=== PATIENT | female | born 1935 | race Caucasian/White ===

== ENCOUNTER 2016-11-07 11:28 | Inpatient (IN) | payer MEDICARE ==
[~2016-11-07] VITALS: Ht 160 cm; Wt 51.3 kg
[2016-11-07 00:38] VITALS: BP 96/51
[~2016-11-07 11:28] MED LIST: (None)10 MG OR; ACTICIN5 % EX; ALPRAZOLAM0.25 MG OR; AMBIEN10 MG OR; AMOXICILLIN500 MG PO; AVELOX400 MG OR; AVELOX400 MG PO; BACTRIM DS1 TAB OR; BACTROBAN2 % EX; CIPROFLOXACN500 MG PO; CLARITIN-D1 TAB OR; CLONAZEPAM0.5 MG PO; DARVOCET N-100100 - OR; DOCUSATE SOD100 MG PO; DOLACET1 CAP PO; ESTRACE VAG0.1 MG/GM VA; FLONASE NASAL50 MCG; FLORASTOR250 M1 PO; FUROSEMIDE20 MG PO; FUROSEMIDE40 MG PO; HYDROCO/APAP1 TA9 PO; HYDROXYZINE HCL25 MG OR; ISOSORB MONO30 MG OR; ISOSORB MONO30 MG PO; KENALOG15 G1 EX; LORTAB 5/3255 MG PO; METO25TAB OR; METOPROL TAR25 MG PO; METOPROL TAR50 MG OR; METOPROLOL25 M1 OR; MIRTAZAPINE15 MG PO; MULT VITAMIN OR; OXYCODONE5 MG OR; PATANASE0.6 %; PEPCID AC10 M1 OR; REMERON15 MG OR; REMERON30 MG PO; SERTRALINE50 MG OR; SIMVASTATIN20 MG OR; TRAMADOL HCL50 MG OR; TRIAMCINOLON0.11 EX; TYLENOL500 MG OR; ULTRAM50 M1 OR; ULTRAM50 M1 PO; VENLAFAXINE75 M2 PO; VITAMIN D PO; VITAMIN D400 UNI2 PO; XANAX0.5 MG; XYZAL5 MG PO; ZESTRIL5 MG OR; ZYRTEC10 MG OR; ZYRTEC10 MG PO
--- NOTE | 2016-11-07 11:28 | NUR ---
PT TO ROOM VIA EMS FOR TREATMENT
--- NOTE | 2016-11-07 11:45 | NUR ---
ABG COMPLETED, O2@2L APPLIED FOR CONFORT, O2 SAT ON RA 87%. NO CYANOSIS OR SOB. SKIN PWD. TURGOR POOR, MUCOUS MEMBRANES DRY, 2+ PEDAL EDEMA BILATERALLY. FAINT CRACKLES BILAT BASES, BS X4 QUADS. NO C/O N/V/D AT THIS TIME
[2016-11-07] MEDS ORDERED: HYDROCO/APAP1 T10 PO (11:55)
[2016-11-07] MEDS ORDERED: FUROSEMIDE40 MG PO (11:56)
[2016-11-07] MEDS ORDERED: ISOSORB MONO30 MG PO (11:57)
[2016-11-07] MEDS ORDERED: ELIQUIS2.5 MG PO (11:58)
--- NOTE | 2016-11-07 12:15 | NUR ---
PT RESTING SUPINE IN BED IN NO ACUTE DISTRESS.VSS. 02@2L VIA NC. NO N/V/D SINCE MARKETING OPERATIONS MANAGER.
[2016-11-07 12:16] LABS: HEMATOCRIT 33.7 % (37.0-47.0); HEMOGLOBIN 10.5 g/dl (12.0-16.0); IMMATURE GRANULOCYTES 0.6 % (0.0-1.0); MEAN CELL VOLUME 89.6 fL CALC (80.0-100.0); MEAN CORPUSCULAR HGB 27.9 pG CALC (26.0-32.0); MEAN CORPUSCULAR HGB CONC 31.2 g/L CALC (32.0-36.0); NEUT# 2.69 thou/uL (2.00-7.15); RED BLOOD COUNT 3.76 mill/uL (4.20-5.60); RED CELL DISTRI WIDTH 15.9 % (11.5-15.5)
[2016-11-07 12:41] LABS: ALBUMIN 3.7 g/dL (3.2-5.0); ALKALINE PHOSPHATASE 154 u/l (38-126); BILIRUBIN, TOTAL 0.6 mg/dL (0.0-1.4); BUN 23 mg/dL (8-23); BUN/CREATININE RATIO 28 (12-20 (CALC)); CALCIUM 8.3 mg/dL (8.4-10.2); CARBON DIOXIDE 30 mmol/l (22-30); CHLORIDE 98 mmol/l (95-108); CREATININE 0.8 mg/dL (0.5-1.0); GFR > 60 ML/MIN (>=60 (CALC)); GFR FOR AFR.AMER. > 60 ML/MIN (>=60 (CALC)); GLUCOSE 119 mg/dL (82-115); SGOT/AST 30 u/l (9-36); SGPT/ALT 28 u/l (11-66); SODIUM 141 mmol/l (137-146); TOTAL PROTEIN 7.5 g/dL (6.3-8.2)
[2016-11-07 12:44] LABS: ANION GAP 15 (6-22 (CALC)); POTASSIUM 2.4 mmol/l (3.5-5.1)
[2016-11-07 12:52] LABS: MYOGLOBIN 59 ng/mL (0 - 62)
--- NOTE | 2016-11-07 13:44 | NUR ---
PT STATES "I REALLY DO FEEL BETTER". TOLERATING IVF AND POTASSIUM INFUSION WITHOUT DIFFICULTY. NO REDNESS OR COMPLAINT TO SITE
--- NOTE | 2016-11-07 13:47 | NUR ---
DR GREGORY AT BEDSIDE TO DISCUSS CLINICAL FINDINGS
[2016-11-07 14:01] LABS: URINE BILIRUBIN - DIPSTICK NEGATIVE (NEGATIVE); URINE BLOOD DIPSTICK TRACE-LYSED (NEGATIVE); URINE CLARITY CLEAR; URINE COLOR YELLOW; URINE GLUCOSE - DIPSTICK NEGATIVE (NEGATIVE); URINE KETONE NEGATIVE (NEGATIVE); URINE LEUK ESTERASE TRACE (NEGATIVE); URINE NITRITE - DIPSTICK NEGATIVE (Negative); URINE PH 5.5 (4.5-8.0); URINE PROTEIN - DIPSTICK TRACE mg/dL (NEG-TRACE); URINE SPECIFIC GRAVITY 1.015; URINE UROBILINOGEN - DIPSTICK 0.2 E.U./dL (0.2)
--- NOTE | 2016-11-07 14:20 | NUR ---
PT RESTING IN NO ACITE DISTRESS. VSS. AWAITING TEST RESULTS. SRX2
--- NOTE | 2016-11-07 15:08 | NUR ---
CALLED REPORT TO EDER CROWLEY
--- NOTE | 2016-11-07 15:15 | NUR ---
TRANSPORTED TO AL VIA STRETCHER IN STABLE CONDITION
--- NOTE | 2016-11-07 15:21 | NUR ---
PT TO ROOM VIA STRETHCER ACCOMPANIED BY STAFF; PT A/O X3; PT DENIES PAIN; PT STATES N/V/D X2 DAYS AND WEAKNESS; IVF INFUSING WELL; TELE MONITOR IN PLACE; PT ORIENTED TO ROOM AND CALL SYSTEM; WILL CONTINUE TO MONITOR.
[2016-11-07 15:50] VITALS: BP 102/63
--- NOTE | 2016-11-07 18:40 | NUR ---
PT SITTING UP IN CHAIR; TOLERATED PO POTASSIUM FAIR; NO COMPLAINTS OF PAIN AT THIS TIME; CALL BACK WITHIN REACH; WILL CONTINUE TO MONITOR. WILL CONTINUE TO MONITOR.
--- NOTE | 2016-11-07 19:54 | NUR ---
BEDSIDE REPORT RECEIVED FROM EDER ROQUE. PT RESTING IN BED WATCHING TV. DENIES PAIN AT THIS TIME. RESPIRATIONS EVEN AND UNLABORED. PLAN OF CARE DISCUSSED. PT ENCOURAGED TO VERBALIZE CONCERNS. STATES UNDERSTANDING. SAFETY MEASURES IN PLACE. CALL LIGHT SYSTEM REVIEWED AND IN REACH.
[2016-11-07 20:09] VITALS: BP 93/51
[2016-11-07 21:22] LABS: MAGNESIUM 1.6 mg/dL (1.6-2.3); POTASSIUM 2.9 mmol/l (3.5-5.1)
--- NOTE | 2016-11-08 | NUR ---
PT UP TO RESTROOM AT THIS TIME. DENIES PAIN. RESPIRATIONS EVEN AND UNLABORED. OXYGEN AT BEDSIDE. PT SATURTATION IS ABOVE 90% ON RA AT THS TIME. ABT GIVEN AND INFUSING. PT REMAINS HYPOKALEMIC AND ANOTHER DOSE OF POTASSIUM ORDERED AND GIVEN. SAFETY MEASURES IN PLACE. CALL LIGHT WITHIN REACH.
--- NOTE | 2016-11-08 04:00 | NUR ---
PT ASLEEP AT THIS TIME. NO SIGNS OF PAIN OR DISCOMFORT. RESPIRATIONS EVEN AND UNLABORED WITH OXYGEN IN PLACE AT 2L VIA NC. SAFETY MEASURES IN PLACE. CALL LIGHT WITHIN REACH.
[2016-11-08 05:00] VITALS: BP 93/60
[2016-11-08 06:28] LABS: HEMATOCRIT 30.8 % (37.0-47.0); HEMOGLOBIN 9.5 g/dl (12.0-16.0); IMMATURE GRANULOCYTES 0.4 % (0.0-1.0); MEAN CELL VOLUME 90.3 fL CALC (80.0-100.0); MEAN CORPUSCULAR HGB 27.9 pG CALC (26.0-32.0); MEAN CORPUSCULAR HGB CONC 30.8 g/L CALC (32.0-36.0); NEUT# 1.55 thou/uL (2.00-7.15); RED BLOOD COUNT 3.41 mill/uL (4.20-5.60); RED CELL DISTRI WIDTH 16.1 % (11.5-15.5)
[2016-11-08 06:44] LABS: ANION GAP 16 (6-22 (CALC)); BUN 23 mg/dL (8-23); BUN/CREATININE RATIO 25 (12-20 (CALC)); CALCIUM 8.2 mg/dL (8.4-10.2); CARBON DIOXIDE 26 mmol/l (22-30); CHLORIDE 104 mmol/l (95-108); CREATININE 0.9 mg/dL (0.5-1.0); GFR 60 ML/MIN (>=60 (CALC)); GFR FOR AFR.AMER. > 60 ML/MIN (>=60 (CALC)); GLUCOSE 87 mg/dL (82-115); POTASSIUM 4.7 mmol/l (3.5-5.1); SODIUM 142 mmol/l (137-146)
--- NOTE | 2016-11-08 07:00 | NUR ---
REPORT RECIEVED FROM LINDA GUNTER; PT SITTING UP AT BEDSIDE; NO S/S OF DISTRESS NOTED; PT ASSISTED TO BATHROOM AT THIS TIME PT AMB WITH STEADY GAIT AND USE OF WALKER; CALL LIGHT WITHIN REACH; PT ENCOURAGED TO CALL FOR ASSISTANCE; CALL LIGHT WITHIN REACH; WILL CONTINUE TO MONITOR
[2016-11-08 08:36] VITALS: BP 100/52
[2016-11-08 11:10] VITALS: BP 100/46
[2016-11-08] MEDS ORDERED: ELIQUIS2.5 MG PO (11:38)
[2016-11-08] MEDS ORDERED: METOPROL TAR25 MG PO (11:39)
[2016-11-08] MEDS ORDERED: LISINOPRIL2.5 MG PO (11:39)
--- NOTE | 2016-11-08 12:22 | NUR ---
PT SITTING UP IN CHAIR AT BEDSIDE FOR LUNCH; PT DENIES ANY NEEDS AT THIS TIME; CALL LIGHT WITHIN REACH; WILL CONTINUE TO MONITOR
--- NOTE | 2016-11-08 14:03 | NUR ---
Discharge instructions given. Patient verbalizes understanding of same. Discharged in stable condition via Wheelchair to Home with family. All belongings sent with pt.
== END 2016-11-08 14:03 | disposition home or self-care (01) | DRG 391 ==
LOC: ENPENDDIS → ED 11:28 → ED-I 13:49 → ED 14:22 → MS2 14:35
PROVIDERS: Emergency Medicine; ADMIT Internal Medicine; ATTEND Internal Medicine
DX: A08.4 Viral intestinal infection, unspecified (principal); J96.01 Acute respiratory failure with hypoxia; C95.91 Leukemia, unspecified, in remission; E87.6 Hypokalemia; I10 Essential (primary) hypertension; E78.00 Pure hypercholesterolemia, unspecified; F41.9 Anxiety disorder, unspecified; F32.9 Major depressive disorder, single episode, unspecified; E78.5 Hyperlipidemia, unspecified; I48.0 Paroxysmal atrial fibrillation; M19.90 Unspecified osteoarthritis, unspecified site; Z95.0 Presence of cardiac pacemaker

== ENCOUNTER 2016-12-12 17:37 | Inpatient (IN) | payer MEDICARE ==
[~2016-12-12] VITALS: Ht 160 cm; Wt 46.0 kg
[~2016-12-12 17:37] MED LIST changes: +ELIQUIS2.5 MG PO; +HYDROCO/APAP1 T10 PO; +LISINOPRIL2.5 MG PO
[2016-12-12 18:23] LABS: HEMATOCRIT 34.7 % (37.0-47.0); HEMOGLOBIN 10.6 g/dl (12.0-16.0); IMMATURE GRANULOCYTES 0.3 % (0.0-1.0); MEAN CELL VOLUME 87.6 fL CALC (80.0-100.0); MEAN CORPUSCULAR HGB 26.8 pG CALC (26.0-32.0); MEAN CORPUSCULAR HGB CONC 30.5 g/L CALC (32.0-36.0); NEUT# 2.14 thou/uL (2.00-7.15); RED BLOOD COUNT 3.96 mill/uL (4.20-5.60); RED CELL DISTRI WIDTH 15.9 % (11.5-15.5)
--- NOTE | 2016-12-12 18:23 | NUR ---
PATIENT TO ROOM VIA EMS PATIENT INCONTINENT. PROVIDER NOTIFIED OF PATIENTS STATUS. PATIENT DENIES ANY PAIN AT THIS TIME
[2016-12-12 18:39] LABS: ALBUMIN 3.6 g/dL (3.2-5.0); ALKALINE PHOSPHATASE 232 u/l (38-126); ANION GAP 16 (6-22 (CALC)); BILIRUBIN, TOTAL 0.8 mg/dL (0.0-1.4); BUN 23 mg/dL (8-23); BUN/CREATININE RATIO 25 (12-20 (CALC)); CALCIUM 8.8 mg/dL (8.4-10.2); CARBON DIOXIDE 29 mmol/l (22-30); CHLORIDE 100 mmol/l (95-108); CREATININE 0.9 mg/dL (0.5-1.0); GFR 60 ML/MIN (>=60 (CALC)); GFR FOR AFR.AMER. > 60 ML/MIN (>=60 (CALC)); GLUCOSE 93 mg/dL (82-115); POTASSIUM 3.4 mmol/l (3.5-5.1); SGOT/AST 43 u/l (9-36); SGPT/ALT 34 u/l (11-66); SODIUM 143 mmol/l (137-146); TOTAL PROTEIN 7.2 g/dL (6.3-8.2)
--- NOTE | 2016-12-12 18:44 | NUR ---
PATIENT INCONTINENT SAMPLE TAKEN AND SENT TO THE LAB [id number] AT BEDSIDE FOR EVALUATION
[2016-12-12 19:09] LABS: C. DIFFICILE TOXIN A&B NEGATIVE (NEGATIVE)
--- NOTE | 2016-12-12 19:10 | NUR ---
INTRODUCED SELF TO PT DURING BEDSIDE REPORT WITH GABBIE GAINES. PT RESTING QUIETLY ON STRETCHER IN NO ACUTE DISTRESS. DENIES PAIN. REPORTING HAS NOT HAD ANOTHER STOOL
--- NOTE | 2016-12-12 19:30 | NUR ---
PRESENTS WITH 3 DAYS HISTORY OF DIARRHEA STOOLS THAT BEGAN ON THURSDAY AND HAS CONTINUED. TODAY PT HAS HAD GREATER THAN 3 STOOLS PER HOUR WITH INCREASING WEAKNESS. STARTED ON ANTIBIOTIC ON 12/08/2016 FOR EAR INFECTION. SHE IS ALERT AND ORIENTED, SPEECH IS CLEAR AND GOAL DIRECTED. PUPILS ARE IRREGULAR S/P IRIDECTOMY WITH RT AT 4 AND LEFT AT 6 AND NON REACTIVE. EOM INTACT. TRINH WELL AGAINST GRAVITY. DENIES PARETHESIA. SKIN IS PALE WARM AND DRY. DECREASED TISSUE ELASTICITY, MORE THAN ANTICIPATED FOR AGE. ORAL MUCOUS MEMB PINK, DRY. CAP REFILL < 2SEC. CARDIA-100% PACED 100% CAPTURE. CHEST EXPANION IS SYMMETRICAL WITH CREPITATION THROUGHOUT. RESPIRATIONS ARE EUPENIC. ABDOMEN IS SOFT, NON DISTENDED, NON TENDER TO PALPATION WITHOUT GUARDING OR REBOUND. DISCUSSED NPO STATUS AT THIS TIME
[2016-12-12 19:40] LABS: AMYLASE < 30 u/l (30-110); LIPASE < 10 u/l (23-300)
--- NOTE | 2016-12-12 20:10 | NUR ---
PT RET RUEND FROM RADIOLOGY. INCONTIENT OF LARGE AMOUNT OF LIQUID BROWN STOOL. PERICARE WAS PROVIDED WITH LINEN CHANGE.
--- NOTE | 2016-12-12 21:00 | NUR ---
PT VOIDING WITHOUT DIARRHEA ON BEDPAN AND URINE SAMPLE OBTAINED AFTER PERICARE TO PERINENUM
--- NOTE | 2016-12-12 21:40 | NUR ---
PT INCONTINENT OF LARGE AMOUNT OF LIQUID BROWN STOOL. PERICARE AND SKIN CARE PROVIDED WITH PARTIAL LINEN CHANGE
[2016-12-12 21:42] LABS: URINE BILIRUBIN - DIPSTICK NEGATIVE (NEGATIVE); URINE BLOOD DIPSTICK NEGATIVE (NEGATIVE); URINE CLARITY CLEAR; URINE COLOR YELLOW; URINE GLUCOSE - DIPSTICK NEGATIVE (NEGATIVE); URINE KETONE NEGATIVE (NEGATIVE); URINE LEUK ESTERASE NEGATIVE (NEGATIVE); URINE NITRITE - DIPSTICK NEGATIVE (Negative); URINE PH 5.5 (4.5-8.0); URINE PROTEIN - DIPSTICK TRACE mg/dL (NEG-TRACE); URINE UROBILINOGEN - DIPSTICK 0.2 E.U./dL (0.2)
--- NOTE | 2016-12-12 22:13 | NUR ---
INCONTINENT OF MODERATE AMOUNT OF LIQUID BROWN STOOL. PERICARE WAS PROVIDED WITH PARTIAL LINEN CHANGE
--- NOTE | 2016-12-12 22:39 | NUR ---
ATTEMPTED TO CALL REPORT,
--- NOTE | 2016-12-12 23:08 | NUR ---
REPORT TO LENA GAINES ON MED/SURG
--- NOTE | 2016-12-12 23:21 | NUR ---
PT TRANSPORTED VIA STRETCHER ACCMPANIED BY ELECTRIC POWER MACHINE OPERATOR IN STABLE [place] AFTER TELEMTRY UNIT APPLIED. REMAINS ALERT AND ORIENTED. SPEECH CLEAR AND GOAL DIRECTED
--- NOTE | 2016-12-12 23:30 | NUR ---
PT FROM ER TO MEDSUR[facility] ROOM 269; ALERT AND ORIENTED; ABLE TO AMBULATE FROM STRETCHER TO TO SCALE THEN TO BED WITH ASSISTANCE X1; DENIES PAIN OR SOB; SATTING AT 89%; ADMINISTERED O2 VIA NC 2LPM; NO DISTRESS NOTED; HAVE A SMALL LOOSE STOOL AT THIS TIME; WILL FOLLOW UP WITH MEDS SCHEDULED AND ASSESSMENT COMPLETED AT THIS TIME; SEE INTERVENTIONS FOR DETAILS; CALL LIGHT AT REACH AND EXPLAINED; SAFETY MEASURE IN PLACE; 2+ PITTING EDEMA ON BILAT LLE; WILL CONTINUE TO REASSESS. TELE IN PLACE.
[2016-12-13] VITALS (7 sets, daily range): BP systolic 113–146; BP diastolic 60–74
--- NOTE | 2016-12-13 03:00 | NUR ---
PT IN RESTING IN BED DENIES NEEDS AT THIS TIME; VOICES NO NEW COMPLAINTS; RESP ARE EVEN AND UNLABORED NOT DISTRESS NOTED; TELE IN PLACE; AFEBRILE; VSS; WILL CONTINUE TO MONITOR.
--- NOTE | 2016-12-13 05:13 | NUR ---
ASSISTED PT TO BSC; HAD A SMALL LOOSE BM; PROVIDED PERINEAL CARE; SOME REDNESS NOTED ON COCCYX DUE TO FREQUENT STOOLS; APPLIED SOME BARRIER CREAM; WILL COTINUE TO MONITOR.
[2016-12-13 05:56] LABS: HEMATOCRIT 34.3 % (37.0-47.0); HEMOGLOBIN 10.3 g/dl (12.0-16.0); IMMATURE GRANULOCYTES 0.4 % (0.0-1.0); MEAN CELL VOLUME 88.6 fL CALC (80.0-100.0); MEAN CORPUSCULAR HGB 26.6 pG CALC (26.0-32.0); NEUT# 1.65 thou/uL (2.00-7.15); RED BLOOD COUNT 3.87 mill/uL (4.20-5.60); RED CELL DISTRI WIDTH 15.8 % (11.5-15.5)
[2016-12-13 06:12] LABS: ANION GAP 13 (6-22 (CALC)); BUN 20 mg/dL (8-23); BUN/CREATININE RATIO 21 (12-20 (CALC)); CALCIUM 8.2 mg/dL (8.4-10.2); CARBON DIOXIDE 29 mmol/l (22-30); CHLORIDE 105 mmol/l (95-108); CREATININE 0.9 mg/dL (0.5-1.0); GFR 60 ML/MIN (>=60 (CALC)); GFR FOR AFR.AMER. > 60 ML/MIN (>=60 (CALC)); GLUCOSE 72 mg/dL (82-115); SODIUM 144 mmol/l (137-146)
--- NOTE | 2016-12-13 09:15 | NUR ---
PT ASSISTED TO BSC; MODERATE AMOUNT OF LOOSE STOOL NOTED; PT DENIES PAIN; IVF INFUSING WITHOUT DIFFICULTY; CALL BACK WITHIN REACH; WILL CONTINUE TO MONITOR.
--- NOTE | 2016-12-13 13:23 | NUR ---
PT RESTING IN SUPINE POSITION; NO COMPLAINTS VOICED; IVF INFUSING WITHOUT DIFFICULTY; PT CONTINUES TO HAVE MULTIPLE LOOSE STOOLS; ASSISTED WITH CORBIN CARE; BARRIER CREAM APPLIED;
--- NOTE | 2016-12-13 20:00 | NUR ---
PT CONTINUES HAVING FREQUENT LOOSE BM, GREEN WATERY; DENIES PAIN AT THIS TIME; RESP ARE EVEN AND UNLABORED; DENIES N/V; FLUIDS INFUSING AT RX RATE WITHOUT DIFFICULTY; PROVIDED PERINEAL CARE; COCCYX IS RED FROM FREQ BM'S, BARRIER CREAM APPLIED, LUNGS ARE COARSE BILT; SAFETY PRECAUTIONS IN PLACE; WILL CONTINUE TO MONITOR.
--- NOTE | 2016-12-13 23:55 | NUR ---
PT RESTING IN BED WITH EYES CLOSED; VOICES NO COMPLAINTS AT THIS TIME; RESP EVEN AND UNLABORED; DENIES N/V OR PAIN; VSS, TELE IN PLACE; PACED HR 60 PER ER. +2 EDEMA NOTED ON BLE; CALL BACK IS AT REACH WILL COTINUE TO MONITOR.
[2016-12-14 04:05] VITALS: BP 127/62
--- NOTE | 2016-12-14 04:11 | NUR ---
ASSISTED PT TO BSC, NO BM AT THIS TIME IN BSC; CHANGED STOOL/WET UNDERPAD; DENIES PAIN OR NEEDS; IV SITE INTACT; INFUSING WITHOUT DIFFICULTY; CALL BACK AT REACH; WILL COTINUE TO MONITOR.
[2016-12-14 05:35] LABS: HEMATOCRIT 36.1 % (37.0-47.0); HEMOGLOBIN 10.7 g/dl (12.0-16.0); IMMATURE GRANULOCYTES 0.3 % (0.0-1.0); MEAN CELL VOLUME 88.5 fL CALC (80.0-100.0); MEAN CORPUSCULAR HGB 26.2 pG CALC (26.0-32.0); MEAN CORPUSCULAR HGB CONC 29.6 g/L CALC (32.0-36.0); NEUT# 2.11 thou/uL (2.00-7.15); RED BLOOD COUNT 4.08 mill/uL (4.20-5.60); RED CELL DISTRI WIDTH 15.9 % (11.5-15.5)
--- NOTE | 2016-12-14 05:38 | NUR ---
RESP ARE UNLABORED; VSS; DENIES NEEDS, N/V OR PAIN AT THIS TIME; PT CONTINUES HAVING SCANT/SMALL, GREEN, LOOSE BM'S, NOT FREQ BEFORE; CALL BACK IS AT REACH WILL CONTINUE TO MONITOR.
[2016-12-14 05:54] LABS: ANION GAP 16 (6-22 (CALC)); BUN 15 mg/dL (8-23); BUN/CREATININE RATIO 17 (12-20 (CALC)); CALCIUM 8.7 mg/dL (8.4-10.2); CARBON DIOXIDE 26 mmol/l (22-30); CHLORIDE 106 mmol/l (95-108); CREATININE 0.9 mg/dL (0.5-1.0); GFR 60 ML/MIN (>=60 (CALC)); GFR FOR AFR.AMER. > 60 ML/MIN (>=60 (CALC)); GLUCOSE 84 mg/dL (82-115); POTASSIUM 4.2 mmol/l (3.5-5.1); SODIUM 143 mmol/l (137-146)
[2016-12-14 07:48] VITALS: BP 138/68
--- NOTE | 2016-12-14 10:14 | NUR ---
DR. HASTINGS IN TO SEE PT; PLAN OF CARE DISCUSSED
[2016-12-14 11:06] VITALS: BP 114/70
[2016-12-14] MEDS ORDERED: FLORASTOR250 M1 PO (12:07)
--- NOTE | 2016-12-14 12:44 | NUR ---
Discharge instructions given. Patient verbalizes understanding of same. Discharged in stable condition via Wheelchair to Home with family. All belongings sent with pt.
== END 2016-12-14 12:44 | disposition home or self-care (01) | DRG 391 ==
LOC: ENPENDDIS → ED 17:37 → ED-I 21:50 → ED 22:07 → MS2 22:08
PROVIDERS: Emergency Medicine; ADMIT Internal Medicine; ATTEND Internal Medicine
DX: A08.0 Rotaviral enteritis (principal); J96.01 Acute respiratory failure with hypoxia; D61.818 Other pancytopenia; C91.01 Acute lymphoblastic leukemia, in remission; I48.0 Paroxysmal atrial fibrillation; N28.1 Cyst of kidney, acquired; E87.6 Hypokalemia; I86.8 Varicose veins of other specified sites; I10 Essential (primary) hypertension; K44.9 Diaphragmatic hernia without obstruction or gangrene; Z95.0 Presence of cardiac pacemaker; Z90.49 Acquired absence of other specified parts of digestive tract; Z79.01 Long term (current) use of anticoagulants

== ENCOUNTER 2017-04-22 03:55 | Emergency (ER) | payer MEDICARE ==
[~2017-04-22] VITALS: Ht 160 cm; Wt 42.7 kg
[2017-04-22] MEDS ORDERED: METOLAZONE2.5 MG PO (04:04)
[2017-04-22 05:30] LABS: ALBUMIN 4.1 g/dL (3.2-5.0); ALKALINE PHOSPHATASE 222 u/l (38-126); ANION GAP 17 (6-22 (CALC)); BILIRUBIN, TOTAL 1.2 mg/dL (0.0-1.4); BUN 17 mg/dL (8-23); BUN/CREATININE RATIO 18 (12-20 (CALC)); CALCIUM 9.3 mg/dL (8.4-10.2); CARBON DIOXIDE 32 mmol/l (22-30); CHLORIDE 101 mmol/l (95-108); GFR 53 ML/MIN (>=60 (CALC)); GFR FOR AFR.AMER. > 60 ML/MIN (>=60 (CALC)); GLUCOSE 112 mg/dL (82-115); POTASSIUM 3.4 mmol/l (3.5-5.1); SGOT/AST 31 u/l (9-36); SGPT/ALT 34 u/l (11-66); SODIUM 146 mmol/l (137-146); TOTAL PROTEIN 8.5 g/dL (6.3-8.2)
[2017-04-22 05:39] LABS: HEMATOCRIT 40.2 % (37.0-47.0); HEMOGLOBIN 12.4 g/dl (12.0-16.0); IMMATURE GRANULOCYTES 0.4 % (0.0-1.0); MEAN CELL VOLUME 89.9 fL CALC (80.0-100.0); MEAN CORPUSCULAR HGB 27.7 pG CALC (26.0-32.0); MEAN CORPUSCULAR HGB CONC 30.8 g/L CALC (32.0-36.0); NEUT# 3.61 thou/uL (2.00-7.15); RED BLOOD COUNT 4.47 mill/uL (4.20-5.60); RED CELL DISTRI WIDTH 18.9 % (11.5-15.5)
[2017-04-22 05:42] LABS: MYOGLOBIN 48 ng/mL (0 - 62)
[2017-04-22] MEDS ORDERED: ATIVAN0.5 MG PO (06:19)
[2017-04-22 07:10] VITALS: BP 167/82
== END 2017-04-22 07:12 | disposition home or self-care (01) ==
LOC: ED 03:55
PROVIDERS: Emergency Medicine
DX: F41.9 Anxiety disorder, unspecified (principal); Z95.0 Presence of cardiac pacemaker; I12.9 Hypertensive chronic kidney disease with stage 1 through stage 4 chronic kidney disease, or unspecified chronic kidney disease; N18.9 Chronic kidney disease, unspecified
CPT/HCPCS: J2060

== ENCOUNTER 2017-08-21 07:06 | Inpatient (IN) | payer MEDICARE ==
[~2017-08-21] VITALS: Ht 152.4 cm; Wt 46.0 kg
[~2017-08-21 07:06] MED LIST changes: +ATIVAN0.5 MG PO; +METOLAZONE2.5 MG PO
--- NOTE | 2017-08-21 07:18 | NUR ---
ARRIVED VIA EMS STRETCHER IN STABLE CONDITION. PT GIVEN ONE NEB TX BY EMS PRIOR TO ARRIVAL.
[2017-08-21] MEDS ORDERED: MIRTAZAPINE15 MG PO (07:21)
[2017-08-21] MEDS ORDERED: ZANTAC 150 PO (07:22)
[2017-08-21] MEDS ORDERED: LORTAB 1010 MG PO (07:22)
[2017-08-21] MEDS ORDERED: METOLAZONE5 MG PO (07:23)
--- NOTE | 2017-08-21 07:43 | NUR ---
O2 APPLIED AT 2L/MIN VIA NASAL CANNULA.
[2017-08-21 08:01] LABS: HEMATOCRIT 37.8 % (37.0-47.0); HEMOGLOBIN 11.9 g/dl (12.0-16.0); IMMATURE GRANULOCYTES 0.2 % (0.0-1.0); MEAN CELL VOLUME 85.3 fL CALC (80.0-100.0); MEAN CORPUSCULAR HGB 26.9 pG CALC (26.0-32.0); MEAN CORPUSCULAR HGB CONC 31.5 g/L CALC (32.0-36.0); NEUT# 3.27 thou/uL (2.00-7.15); RED BLOOD COUNT 4.43 mill/uL (4.20-5.60); RED CELL DISTRI WIDTH 18.2 % (11.5-15.5)
[2017-08-21 08:19] LABS: ALKALINE PHOSPHATASE 309 u/l (38-126); ANION GAP 17 (6-22 (CALC)); BILIRUBIN, TOTAL 0.8 mg/dL (0.0-1.4); BUN 19 mg/dL (8-23); BUN/CREATININE RATIO 21 (12-20 (CALC)); CALCIUM 9.3 mg/dL (8.4-10.2); CARBON DIOXIDE 32 mmol/l (22-30); CHLORIDE 101 mmol/l (95-108); CREATININE 0.9 mg/dL (0.5-1.0); GFR 60 ML/MIN (>=60 (CALC)); GFR FOR AFR.AMER. > 60 ML/MIN (>=60 (CALC)); GLUCOSE 109 mg/dL (82-115); POTASSIUM 2.9 mmol/l (3.5-5.1); SGOT/AST 65 u/l (9-36); SGPT/ALT 44 u/l (11-66); SODIUM 147 mmol/l (137-146); TOTAL PROTEIN 7.5 g/dL (6.3-8.2)
[2017-08-21 08:31] LABS: MYOGLOBIN 48 ng/mL (0 - 62)
--- NOTE | 2017-08-21 08:39 | NUR ---
PATIENT RESTING ON STRETCHER WITH O2 IN PLACE. RESPS EVEN AND UNLABORED. IV ANTIBIOTIC COMPLETED. TOLERATED WELL. CALL LIGHT WITHIN REACH, WILL CONTINUE TO MONITOR.
--- NOTE | 2017-08-21 08:44 | NUR ---
SBAR PRINTED TO ICUPRN.
--- NOTE | 2017-08-21 09:10 | NUR ---
REPORT GIVEN TO EDER ROQUE.
--- NOTE | 2017-08-21 09:15 | NUR ---
PATIENT TRANSPORTED TO ICU WITH MONITOR IN PLACE. BEDSIDE REPORT GIVEN TO EDER ROQUE. CARE RELINQUISHED.
[2017-08-21 09:20] VITALS: BP 108/62
--- NOTE | 2017-08-21 09:20 | NUR ---
PT TO ROOM VIA STRETCHER ACCOMPANIED BY STAFF; PT ABLE TO TX SELF TO BED WITH MIN ASSIST; PT A/O X3; DENIES PAIN; O2 2L VIA NC, PRODUCTIVE COUGH NOTED, SPUTUM THIN WHITE IN COLOR; LUNGS SOUND CRAKLES THROUGHTOUT; PT ORIENTED TO ROOM AND CALL SYSTEM; WILL CONTINUE TO MONITOR.
--- NOTE | 2017-08-21 10:50 | NUR ---
PT ASSISTED TO BSC; VOIDS 300ML OF CLEAR YELLOW URINE; CALL BACK WITHIN REACH; WILL CONTINUE TO MONITOR.
[2017-08-21 12:00] VITALS: BP 135/71
--- NOTE | 2017-08-21 13:41 | NUR ---
PT RESTING WITH EYES CLOSED; NO S/SX OF DISTRESS NOTED; CALL BACK WITHIN REACH; WILL CONTINUE TO MONITOR.
--- NOTE | 2017-08-21 15:00 | NUR ---
DR. HASTINGS IN TO SEE PT; PLAN OF CARE DISCUSSED
[2017-08-21 16:38] VITALS: BP 146/87
--- NOTE | 2017-08-21 16:40 | NUR ---
PT TALKING ON PHONE WITH SPOUSE; PROD COUGH NOTED; CALL BACK WITHIN REACH; WILL CONTINUE TO MONITOR.
--- NOTE | 2017-08-21 17:38 | NUR ---
PT ASSISTED TO SIDE OF BED AND ASSISTED WITH DINNER SET UP; NO COMPLAINTS VOICED AT THIS TIME
--- NOTE | 2017-08-21 18:18 | NUR ---
VISITORS IN TO SEE PT
[2017-08-21 19:15] VITALS: BP 140/76
--- NOTE | 2017-08-21 19:15 | NUR ---
awake. no resp diff. o2 cont per nc. supervisor paper machine shows paced rhythm pvcs. #22 lac saline lock. po fluids taken fair. voids per bsc. fall precautions cont. requests "pain pill". lortab 10mg po given. admits she takes pain med & klonopin regularly so she won't "go into withdrawal".
[2017-08-22 00:01] VITALS: BP 140/69
--- NOTE | 2017-08-22 00:01 | NUR ---
lab here. blood drawn.
--- NOTE | 2017-08-22 04:00 | NUR ---
cardiac/vascular sonographer shows paced rhythm pvcs. o2 cont.
--- NOTE | 2017-08-22 05:30 | NUR ---
lab here. blood drawn. up to bsc. ruth well.
[2017-08-22 05:44] LABS: HEMATOCRIT 38.9 % (37.0-47.0); HEMOGLOBIN 12.3 g/dl (12.0-16.0); MEAN CELL VOLUME 85.1 fL CALC (80.0-100.0); MEAN CORPUSCULAR HGB 26.9 pG CALC (26.0-32.0); MEAN CORPUSCULAR HGB CONC 31.6 g/L CALC (32.0-36.0); RED BLOOD COUNT 4.57 mill/uL (4.20-5.60); RED CELL DISTRI WIDTH 18.4 % (11.5-15.5)
[2017-08-22 06:27] LABS: ANION GAP 15 (6-22 (CALC)); BUN 25 mg/dL (8-23); BUN/CREATININE RATIO 27 (12-20 (CALC)); CALCIUM 9.4 mg/dL (8.4-10.2); CARBON DIOXIDE 29 mmol/l (22-30); CHLORIDE 104 mmol/l (95-108); CREATININE 0.9 mg/dL (0.5-1.0); GFR 60 ML/MIN (>=60 (CALC)); GFR FOR AFR.AMER. > 60 ML/MIN (>=60 (CALC)); GLUCOSE 179 mg/dL (82-115); POTASSIUM 3.7 mmol/l (3.5-5.1); SODIUM 144 mmol/l (137-146)
--- NOTE | 2017-08-22 07:10 | NUR ---
awake in bed; no distress noted; pt offers no complaints; assessment completed at this time; pt alert and oriented; denies pain; no n/v noted; pt denies difficulty breathing; resp even and unlabored; lungs coarse with exp wheezing upper anterior and posterior; moist loose cough noted; skin color pale; o2 per nc at 2L humidified; hr reg; strong pulses; no edema noted; paced on monitor; abd soft with bs present; pt admits to bm this am; admits to voiding without pain or burning; no urine to inspect at this time; bsc; #22 in lac saline locked; no redness or edema noted at site; bruising noted to left hand; plan of care/ am meds explained; call light within reach; will continue to monitor
--- NOTE | 2017-08-22 08:11 | NUR ---
awake; sitting on side of bed eating breakfast; no distress noted; pt offers no complaints; paced/pvc on monitor; o2 per nc; call light within reach; will continue to monitor
[2017-08-22 08:21] VITALS: BP 153/81
--- NOTE | 2017-08-22 10:05 | NUR ---
awake; complaints of back pain rating 7/10; medicated with lortab as per orders; iv flushed and patent; abt completed; o2 per nc; call light within reach; will continue to monitor
--- NOTE | 2017-08-22 10:20 | NUR ---
Dr Govea at bedside to discuss plan of care
[2017-08-22] MEDS ORDERED: VIBRAMYCIN100 M2 PO (10:30)
[2017-08-22] MEDS ORDERED: PREDNISONE20 MG PO (10:30)
[2017-08-22 11:00] VITALS: BP 119/61
--- NOTE | 2017-08-22 11:29 | NUR ---
Discharge instructions given. Patient verbalizes understanding of same. Discharged in stable condition via Wheelchair to Home with friend. All belongings sent with pt.
== END 2017-08-22 11:20 | disposition home or self-care (01) | DRG 189 ==
LOC: ED 07:06 → ED-I 08:24 → ED 08:39 → ICU 08:40
PROVIDERS: Emergency Medicine; Nurse Practitioner Family; ADMIT Internal Medicine; ATTEND Internal Medicine
DX: J96.01 Acute respiratory failure with hypoxia (principal); I11.0 Hypertensive heart disease with heart failure; T17.998A Other foreign object in respiratory tract, part unspecified causing other injury, initial encounter; C91.01 Acute lymphoblastic leukemia, in remission; E87.5 Hyperkalemia; I50.9 Heart failure, unspecified; F41.9 Anxiety disorder, unspecified; E78.5 Hyperlipidemia, unspecified; F32.9 Major depressive disorder, single episode, unspecified; Z90.49 Acquired absence of other specified parts of digestive tract; Z96.643 Presence of artificial hip joint, bilateral; Z92.3 Personal history of irradiation; Z95.0 Presence of cardiac pacemaker; Z92.21 Personal history of antineoplastic chemotherapy

== ENCOUNTER 2018-02-15 01:29 | Inpatient (IN) | payer MEDICARE ==
[~2018-02-15] VITALS: Ht 152.4 cm; Wt 42.9 kg
[~2018-02-15 01:29] MED LIST changes: +IPRATROPIU0.5 MG/3 M IN; +LORTAB 1010 MG PO; +Levaquin PO; +METOLAZONE5 MG PO; +PANTOPRAZOLE SO40 M1 PO; +PREDNISONE10 MG PO; +PREDNISONE20 MG PO; +VIBRAMYCIN100 M2 PO; +ZANTAC 150 PO
[2018-02-15] MEDS ORDERED: RANITIDINE150 M1 PO (01:48)
[2018-02-15] MEDS ORDERED: METOLAZONE2.5 MG PO (01:49)
[2018-02-15] MEDS ORDERED: KLOR-CON M2020 MEQ PO (01:49)
[2018-02-15] MEDS ORDERED: TOPROL XL25 M1 PO (01:50)
[2018-02-15] MEDS ORDERED: ZYRTEC10 MG PO (01:52)
[2018-02-15] MEDS ORDERED: LISINOPRIL2.5 MG PO (01:52)
[2018-02-15 02:25] LABS: IMMATURE GRANULOCYTES 0.3 % (0.0-5.0); MEAN CELL VOLUME 90.3 fL CALC (80.0-100.0); MEAN CORPUSCULAR HGB 27.7 pG CALC (26.0-32.0); MEAN CORPUSCULAR HGB CONC 30.6 g/L CALC (32.0-36.0); NEUT# 7.31 thou/uL (2.00-7.15); RED BLOOD COUNT 5.35 mill/uL (4.20-5.60); RED CELL DISTRI WIDTH 19.4 % (11.5-15.5)
[2018-02-15 02:26] LABS: HEMOGLOBIN 14.8 g/dl (12.0-16.0)
[2018-02-15 02:27] LABS: HEMATOCRIT 48.3 % (37.0-47.0)
[2018-02-15 02:38] LABS: ALKALINE PHOSPHATASE 135 u/l (38-126); AMYLASE 38 u/l (30-110); BILIRUBIN, TOTAL 1.8 mg/dL (0.0-1.4); BUN 32 mg/dL (8-23); BUN/CREATININE RATIO 35 (12-20 (CALC)); CHLORIDE 95 mmol/l (95-108); CREATININE 0.9 mg/dL (0.5-1.0); GFR 60 ML/MIN (>=60 (CALC)); GFR FOR AFR.AMER. > 60 ML/MIN (>=60 (CALC)); LIPASE 25 u/l (23-300); SGOT/AST 29 u/l (9-36); SGPT/ALT 25 u/l (11-66); SODIUM 147 mmol/l (137-146)
[2018-02-15 02:46] LABS: ANION GAP 18 (6-22 (CALC)); POTASSIUM 2.7 mmol/l (3.5-5.1)
[2018-02-15 02:47] LABS: CARBON DIOXIDE 37 mmol/l (22-30); MYOGLOBIN 49 ng/mL (0 - 62)
[2018-02-15 03:33] LABS: URINE BILIRUBIN - DIPSTICK NEGATIVE (NEGATIVE); URINE BLOOD DIPSTICK NEGATIVE (NEGATIVE); URINE COLOR YELLOW; URINE GLUCOSE - DIPSTICK NEGATIVE (NEGATIVE); URINE KETONE TRACE mg/dL (NEGATIVE); URINE NITRITE - DIPSTICK NEGATIVE (Negative); URINE PH 7.5 (4.5-8.0); URINE PROTEIN - DIPSTICK 30 mg/dL (NEG-TRACE)
[2018-02-15 03:34] LABS: URINE CLARITY SL CLOUDY; URINE LEUK ESTERASE SMALL (NEGATIVE)
[2018-02-15 03:39] LABS: URINE RBC 0-2 RBC/hpf (0-5)
[2018-02-15 03:40] LABS: URINE BACTERIA FEW hpf; URINE SQUAMOUS EPITHELIAL CELL FEW EPI/hpf (0-FEW)
[2018-02-15 04:04] LABS: D-DIMER 1.53 mg/L (0.19-0.60); INTERNATIONAL NORMALIZED RATIO 1.1 RATIO (0.7-1.3); PROTHROMBIN TIME 12.8 SECONDS (9.0-12.5)
[2018-02-15 06:30] VITALS: BP 118/63
[2018-02-15 08:30] VITALS: BP 163/89
[2018-02-15 10:28] LABS: ANION GAP 14 (6-22 (CALC)); BUN 27 mg/dL (8-23); BUN/CREATININE RATIO 34 (12-20 (CALC)); CARBON DIOXIDE 33 mmol/l (22-30); CHLORIDE 100 mmol/l (95-108); CREATININE 0.8 mg/dL (0.5-1.0); GFR > 60 ML/MIN (>=60 (CALC)); GFR FOR AFR.AMER. > 60 ML/MIN (>=60 (CALC)); SODIUM 143 mmol/l (137-146)
[2018-02-15 10:30] LABS: POTASSIUM 3.9 mmol/l (3.5-5.1)
[2018-02-15 17:30] VITALS: BP 109/56
[2018-02-15 19:30] VITALS: BP 109/45
[2018-02-16 00:21] VITALS: BP 117/57
[2018-02-16 03:24] VITALS: BP 107/51
[2018-02-16 05:08] LABS: HEMATOCRIT 42.5 % (37.0-47.0); HEMOGLOBIN 12.7 g/dl (12.0-16.0); IMMATURE GRANULOCYTES 0.2 % (0.0-5.0); MEAN CELL VOLUME 93.4 fL CALC (80.0-100.0); MEAN CORPUSCULAR HGB 27.9 pG CALC (26.0-32.0); MEAN CORPUSCULAR HGB CONC 29.9 g/L CALC (32.0-36.0); NEUT# 3.99 thou/uL (2.00-7.15); RED BLOOD COUNT 4.55 mill/uL (4.20-5.60); RED CELL DISTRI WIDTH 18.8 % (11.5-15.5)
[2018-02-16 05:19] LABS: CREATININE 1.1 mg/dL (0.5-1.0)
[2018-02-16 08:20] VITALS: BP 101/68
[2018-02-16 15:23] VITALS: BP 128/62
[2018-02-16 19:30] VITALS: BP 145/69
[2018-02-17 04:15] VITALS: BP 147/80
[2018-02-17 05:35] LABS: ANION GAP 14 (6-22 (CALC)); BUN 24 mg/dL (8-23); BUN/CREATININE RATIO 25 (12-20 (CALC)); CARBON DIOXIDE 27 mmol/l (22-30); CHLORIDE 109 mmol/l (95-108); GFR 53 ML/MIN (>=60 (CALC)); GFR FOR AFR.AMER. > 60 ML/MIN (>=60 (CALC)); MAGNESIUM 1.9 mg/dL (1.6-2.3); POTASSIUM 4.9 mmol/l (3.5-5.1); SODIUM 145 mmol/l (137-146)
[2018-02-17 07:55] VITALS: BP 131/64
[2018-02-17 16:19] VITALS: BP 111/56
[2018-02-18] MEDS ORDERED: METOLAZONE2.5 MG PO (21:15)
[2018-02-18] MEDS ORDERED: MIRTAZAPINE15 MG PO (21:16)
[2018-02-18] MEDS ORDERED: LORAZEPAM0.5 MG PO (21:17)
[2018-02-18] MEDS ORDERED: HYDROCO/APAP1 TA9 PO (21:18)
== END 2018-02-17 19:01 | disposition home health service (06) | DRG 389 ==
LOC: ED 01:29 → ED-I 05:15 → ED 05:37 → MS2 05:38
PROVIDERS: Family Medicine; Nurse Practitioner Family; ADMIT Internal Medicine; ATTEND Internal Medicine
DX: K56.609 Unspecified intestinal obstruction, unspecified as to partial versus complete obstruction (principal); C91.91 Lymphoid leukemia, unspecified, in remission; Z68.1 Body mass index [BMI] 19.9 or less, adult; E87.3 Alkalosis; I11.0 Hypertensive heart disease with heart failure; I50.9 Heart failure, unspecified; E87.6 Hypokalemia; E86.0 Dehydration; K44.9 Diaphragmatic hernia without obstruction or gangrene; R09.02 Hypoxemia; M41.9 Scoliosis, unspecified; I48.91 Unspecified atrial fibrillation; E78.5 Hyperlipidemia, unspecified; K21.9 Gastro-esophageal reflux disease without esophagitis; F41.9 Anxiety disorder, unspecified; F32.9 Major depressive disorder, single episode, unspecified; Z92.3 Personal history of irradiation; Z92.21 Personal history of antineoplastic chemotherapy; Z95.0 Presence of cardiac pacemaker; Z79.01 Long term (current) use of anticoagulants; M62.50 Muscle wasting and atrophy, not elsewhere classified, unspecified site
CPT/HCPCS: G0378; J2060; S0164

== ENCOUNTER 2018-02-18 20:03 | Emergency (ER) | payer MEDICARE ==
[~2018-02-18] VITALS: Ht 152.4 cm; Wt 42.7 kg
[~2018-02-18 20:03] MED LIST changes: +KLOR-CON M2020 MEQ PO; +RANITIDINE150 M1 PO; +TOPROL XL25 M1 PO
[2018-02-18 20:42] LABS: HEMATOCRIT 44.8 % (37.0-47.0); HEMOGLOBIN 13.7 g/dl (12.0-16.0); IMMATURE GRANULOCYTES 0.3 % (0.0-5.0); MEAN CELL VOLUME 91.8 fL CALC (80.0-100.0); MEAN CORPUSCULAR HGB 28.1 pG CALC (26.0-32.0); MEAN CORPUSCULAR HGB CONC 30.6 g/L CALC (32.0-36.0); NEUT# 4.19 thou/uL (2.00-7.15); RED BLOOD COUNT 4.88 mill/uL (4.20-5.60); RED CELL DISTRI WIDTH 18.3 % (11.5-15.5)
[2018-02-18] MEDS ORDERED: METOLAZONE2.5 MG PO (21:15)
[2018-02-18] MEDS ORDERED: MIRTAZAPINE15 MG PO (21:16)
[2018-02-18] MEDS ORDERED: LORAZEPAM0.5 MG PO (21:17)
[2018-02-18] MEDS ORDERED: HYDROCO/APAP1 TA9 PO (21:18)
[2018-02-18 21:21] LABS: ALBUMIN 4.2 g/dL (3.2-5.0); BILIRUBIN, TOTAL 1.1 mg/dL (0.0-1.4); CREATININE 1.2 mg/dL (0.5-1.0); POTASSIUM 4.8 mmol/l (3.5-5.1); TOTAL PROTEIN 7.9 g/dL (6.3-8.2)
[2018-02-18 23:54] VITALS: BP 158/70
== END 2018-02-19 00:15 ==
LOC: ED 20:03
PROVIDERS: Emergency Medicine
DX: K56.609 Unspecified intestinal obstruction, unspecified as to partial versus complete obstruction (principal); C95.90 Leukemia, unspecified not having achieved remission; F41.9 Anxiety disorder, unspecified; F32.9 Major depressive disorder, single episode, unspecified; E78.5 Hyperlipidemia, unspecified; I50.9 Heart failure, unspecified; Z92.21 Personal history of antineoplastic chemotherapy; Z92.3 Personal history of irradiation; Z95.0 Presence of cardiac pacemaker

== ENCOUNTER 2018-03-01 21:10 | Inpatient (IN) | payer MEDICARE ==
[~2018-03-01] VITALS: Ht 152.4 cm; Wt 65.8 kg
[~2018-03-01 21:10] MED LIST changes: +LORAZEPAM0.5 MG PO
--- NOTE | 2018-03-01 21:10 | NUR ---
PT TO ROOM 13 BY EMS. PT STATED SHE HIT HER HAND ON WALL PRIOR TO LEAVING HOSPITAL 3 DAYS AGO. PT LEFT BANDAGE IN PLACE UNTIL TODAY WHEN HAND STARTED HURTING. PT LEFT HAND SWOLLEN, RED AND WARM TO TOUCH
--- NOTE | 2018-03-01 21:33 | NUR ---
UNABLE TO OBTAIN OXYGEN SAT AT THIS TIME. READING 67 BUT NOT A GOOD WAVE FORM. ABG ORDERED.
[2018-03-01 22:16] LABS: HEMATOCRIT 47.7 % (37.0-47.0); HEMOGLOBIN 15.5 g/dl (12.0-16.0); IMMATURE GRANULOCYTES 0.4 % (0.0-5.0); MEAN CELL VOLUME 86.4 fL CALC (80.0-100.0); MEAN CORPUSCULAR HGB 28.1 pG CALC (26.0-32.0); MEAN CORPUSCULAR HGB CONC 32.5 g/L CALC (32.0-36.0); NEUT# 8.96 thou/uL (2.00-7.15); RED BLOOD COUNT 5.52 mill/uL (4.20-5.60); RED CELL DISTRI WIDTH 18.9 % (11.5-15.5)
[2018-03-01 23:03] LABS: ALBUMIN 3.4 g/dL (3.2-5.0); BILIRUBIN, TOTAL 0.9 mg/dL (0.0-1.4); CREATININE 1.8 mg/dL (0.5-1.0); TOTAL PROTEIN 7.1 g/dL (6.3-8.2)
[2018-03-01 23:36] LABS: URINE BILIRUBIN - DIPSTICK NEGATIVE (NEGATIVE); URINE BLOOD DIPSTICK NEGATIVE (NEGATIVE); URINE COLOR YELLOW; URINE GLUCOSE - DIPSTICK NEGATIVE (NEGATIVE); URINE KETONE NEGATIVE (NEGATIVE); URINE LEUK ESTERASE NEGATIVE (NEGATIVE); URINE NITRITE - DIPSTICK NEGATIVE (Negative); URINE PH 5.5 (4.5-8.0); URINE PROTEIN - DIPSTICK NEGATIVE (NEG-TRACE); URINE UROBILINOGEN - DIPSTICK 0.2 E.U./dL (0.2)
--- NOTE | 2018-03-01 23:36 | NUR ---
PT DOES HAVE EXCORIATED AREA TO POSTERIOR PEVLIC AREA. DRESSING NOTED TO LUMBAR AREA. ASKED PATIENT ABOUT CURRENT SITUATION AND WAS ADVISED THAT SHE INJURIED HER ON FRONT DOOR OF HOSPITAL LAST WEEK. WOUND WAS WRAPPED AND UNKNOWN IF EXAMINED BY PHYSICIAN OR NOT. PRESENTS TODAY WITH SWOLLEN RED HAND AND LOWER ARM. VERY TENDER AND HOT TO TOUCH
[2018-03-01 23:41] LABS: URINE CLARITY CLEAR
--- NOTE | 2018-03-01 23:46 | NUR ---
PT PLACED ON RIGHT LATERAL POSITION, HELD IN PLACE WITH PILLOWS X 2.
[2018-03-02] VITALS (53 sets, daily range): BP systolic 64–133; BP diastolic 34–89
--- NOTE | 2018-03-02 00:29 | NUR ---
CLARIFICATION OF WOUND TO HAND. WAS NOT DOEN AT THIS FACILITY.
--- NOTE | 2018-03-02 01:30 | NUR ---
REPORT CALLED TO SORAIDA GAINES IN ICU. JEFFERSON FINISHED. FLUID BOLUS OF NS 500 ML CONTINUES. PLACED ON ZOLL MONITOR AND TRANSPORT ED TO ROOM 3.
--- NOTE | 2018-03-02 01:45 | NUR ---
PT. ARRIVES FROM ER VIA STRETCHER. AWAKE, ALERT, ORIENTED TO PERSON AND PLACE. STATES JANUARY AND 2017. REORIENTED TO MONTH DAY YEAR. PT. REALIZES HER JUST HAD A BIRTHDAY ON Feb. STATES [place] [facility]. STATES SHE BANGED HER ARM ON THE DOOR ON THE WAY OUT OF THE HOSPITAL AND THEY PUT A BANDAGE ON IT AND SENT HER HOME. LT. ARM SWELLING/REDNESS/WARMTH NOTED. RADIAL PULSES INTACT BILATERALLY. WEAK PEDAL PULSES NOTED 3+ LOWER EXT EDEMA. PT. HAD LARGE SACRAL DRESSING ACROSS LOWER BACK. WHEN REMOVED, NO WOUND NOTED. HR/BP STABLE ON ARRIVAL. PACED. CRACKLES TO UPPERS BILAT. DIMINISHED TO BASES BILAT. SPO2 92% ON RA. PLACED ON 2L VIA NC. NOW 94%. WILL CONTINUE TO MONITOR. IV REDRESSED ON ARRIVAL IV WAS NOT COMPLETELY SECURED. SKIN INTACT AFTER DRESSING CHANGE. IV FLUIDS WERE INFUSED. CHANGED TO SALINE LOCK. CALL LIGHT PLACED WITHIN REACH. DENIES PAIN. WILL CONTINUE TO MONITOR.
--- NOTE | 2018-03-02 02:05 | NUR ---
PT. ASSISTED TO HER RT. SIDE PER HER REQUEST.
--- NOTE | 2018-03-02 02:10 | NUR ---
PT. STATES SHE NEEDS TO GO FURTHER TO HER RT.
--- NOTE | 2018-03-02 02:19 | NUR ---
PT. C/O LEGS BEING UNCOMFORTABLE. AGAIN REPOSITIONED FOR COMFORT. PILLOW PLACED BETWEEN THIGHS PER HER REQUEST.
--- NOTE | 2018-03-02 03:16 | NUR ---
PT. RESTING ON RT. SIDE IN NO DISTRESS. CALL LIGHT REMAINS WITHIN REACH. RESPS EVEN AND UNLABORED. VSS. WILL CONTINUE TO MONITOR.
--- NOTE | 2018-03-02 04:19 | NUR ---
PT. REPOSITIONED FOR COMFORT AT THIS TIME. REMAINS AFEBRILE. NO DISTRESS. CALL LIGHT REMAINS WITHIN REACH. WILL CONTINUE TO MONITOR.
--- NOTE | 2018-03-02 05:45 | NUR ---
LAB AT BEDSIDE AT THIS TIME. ATTTEMPT TO START NEW LINE TO RT. WRIST HAS BLOWN. #20 GAUGE STARTED TO RT. EXTERNAL JUGULAR. LABS OBTAINED AT THIS TIME. PT. WITH HYPOTENSION. WILL REPEAT AT THIS TIME. PT. REPOSITIONED TO RT. SIDE FOR COMFORT. CALL LIGHT PLACED BACK WITHIN REACH. PT. RESTLESS AND DROWSY. PT. WILL HIT THE CALL BUTTON AND WITHIN 15 SECONDS OF ANSWERING CALL LIGHT PT. WILL NOW BE ASLEEP. WILL CLOSELY MONITOR.
[2018-03-02 06:49] LABS: CREATININE 1.7 mg/dL (0.5-1.0); POTASSIUM 4.9 mmol/l (3.5-5.1)
--- NOTE | 2018-03-02 07:00 | NUR ---
LAB CALLED WITH CRITICAL GLUCOSE. 35. MD MADE AWARE. EMERGENTLY MEDICATED WITH D50% PER MD ORDERS.
--- NOTE | 2018-03-02 07:15 | NUR ---
PT LAYING IN BED RESTING WITH EYES CLOSED, AROUSES EASILY TO VERBAL STIMULI, PT DOZES OFF EASILY, PT ORIENTED TO PERSON & PLACE, HR 60, RESP. 18, BP 76/41, O2 92% ON 2L VIA NC, DIMINISHED LUNG SOUNDS IN THE LOWER LOBES WITH CRACKLES IN UPPER LOBES, 20G LEJ IV IN PLACE, SALINE LOCKED, NO REDNESS OR DRAINAGE AT SITE, 3+ L HAND & LE EDEMA, AM ASSESSMET COMPLETE, SEE INTERVENTIONS, SAFETY MEASURES REINFORCED, CALL BACK WITHIN REACH
--- NOTE | 2018-03-02 08:00 | NUR ---
PT WASHED UP AND LINENS CHANGED AT THIS TIME
--- NOTE | 2018-03-02 08:10 | NUR ---
DR HASTINGS AT BEDSIDE
--- NOTE | 2018-03-02 09:35 | NUR ---
JOSÉ MIGUEL START PER PROTOCOL
--- NOTE | 2018-03-02 10:05 | NUR ---
MARIE BAEZ PLACED ON PT FOR LOW TEMP., WILL CONTINUE TO MONITOR PT CLOSELY, 20G REJ REMAINS IN PLACE WITH GOOD BLOOD RETURN NOTED, PT REMINDED TO CALL FOR ASSISTANCE, CALL BACK WITHIN REACH
--- NOTE | 2018-03-02 11:30 | NUR ---
PT LAYING IN BED RESTING WITH EYES CLOSED, AROUSES EASILY TO VERBAL STIMULI, PT REFUSES LUNCH AT THIS TIME, 20G REJ REMAINS IN PLACE WITH GOOD BLOOD RETURN NOTED, PT REMINDED TO CALL FOR ASSISTANCE, CALL BACK WITHIN REACH
--- NOTE | 2018-03-02 12:20 | NUR ---
PT AROUSES MORE EASILY, PT REQUESTING JUICE, TOLERATING JUICE WELL, CALL BACK WITHIN REACH, IV REMAINS IN PLACE WITH GOOD BLOOD RETURN
--- NOTE | 2018-03-02 13:15 | NUR ---
PT ASSISTED WITH REPOSITONING TO L SIDE PER PT REQUEST, DR HASTINGS AT BEDSIDE DISCUSSING PLAN OF CARE, REMINDED TO CALL FOR ASSISTANCE, CALL BACK WITHIN REACH
--- NOTE | 2018-03-02 14:20 | NUR ---
PT TALKING ON THE PORTABLE PHONE, TOLERATING WELL, NO S/S OF DISTRESS, CALL BACK WITHIN REACH
--- NOTE | 2018-03-02 14:30 | NUR ---
IV SITE REMAINS IN PLACE WITH GOOD BLOOD RETURN, WILL CONTINUE TO MONITOR CLOSELY
--- NOTE | 2018-03-02 15:50 | NUR ---
PT RESTLESS ASSISTED WITH REPOSITIONING FOR COMFORT
--- NOTE | 2018-03-02 16:45 | NUR ---
VISITORS AT BEDSIDE
--- NOTE | 2018-03-02 17:30 | NUR ---
SETUP ASSISTANCE PROVIDED WITH PM MEAL
--- NOTE | 2018-03-02 18:05 | NUR ---
IV REMAINS IN PLACE WITH GOOD BLOOD RETURN
--- NOTE | 2018-03-02 18:30 | NUR ---
PT PLACED ON THE BEDPAN, PT TOLERATED WELL
--- NOTE | 2018-03-02 19:20 | NUR ---
PT. FOUND RESTING WITH EYES CLOSED. SKIN WARM AND DRY. JOSÉ MIGUEL-SYNEPHRINE INFUSING AT 2.5 MG/KG, AND D51/2 INFUSING AT 75 CC/HR. EASILY AROUSABLE. ORIENTED X 3. IV'S INFUSING TO RT. EJ. RESPS EVEN AND UNLABORED. A/V PACED, BP STABLE AT THIS TIME. REMAINS WITH 3+ LOWER EXT EDEMA, PEDAL PULSES WEAK. GOOD BOWEL SOUNDS. WILL CONTINUE TO MONITOR.
--- NOTE | 2018-03-02 19:24 | NUR ---
REPORT FROM [facility] TREVI[facility]O LPN. ASSUMED PT. CARE.
--- NOTE | 2018-03-02 20:08 | NUR ---
PT. REPOSITIONED TO RT. SIDE PER HER REQUEST. MARIE BAEZ IN PLACE AT THIS TIME PT. TEMP NOW 94.8. WILL CONTIUE TO MONITOR. PROVIDED WITH PORTABLE PHONE SOMEONE IS CALLING TO SPEAK WITH HER.
--- NOTE | 2018-03-02 21:07 | NUR ---
LIGHTS DIMMED FOR COMFORT. JOSÉ MIGUEL DRIP DECREASED TO 2 MCG/KG AT THIS TIME. BP 113/60. WILL CONTINUE TO MONITOR AND TITRATE ORDERED. PT. REMAINS RESTING ON HER RT. SIDE PER HER REQUEST. CALL LIGHT REMAINS REMAINS WITHIN REACH.
--- NOTE | 2018-03-02 21:15 | NUR ---
PT. AGAIN REPOSITIONED PER REQUEST. FURTHER TO RT. SIDE. CLEANSED OF STOOL.
--- NOTE | 2018-03-02 21:20 | NUR ---
PT. FOUND NOW WITH INCONTINENCE OF STOOL TO CORBIN AREA, NONE TO BUTTOCKS. PT. NOW STATES SHE IS TOO FAR TO HER RT. SIDE. REPOSITIONED AGAIN PER HER REQUEST. AFTER PT. STATES SHE IS SATISFACTORILY REPOSITIONED, SHE COMPLAINS HER LEGS CAN'T BE TOUCHING AND THEY ARE TOUCHING. AGAIN REPOSITIONED.
--- NOTE | 2018-03-02 21:23 | NUR ---
UPON ATTEMPTING TO LEAVE THE PATIENT ROOM, PT. STATES, "I NEED TO BE TURNED OVER ON MY BACK". PT. WAS INFORMED THAT SHE WAS LITERALLY JUST REPOSITIONED AND STATED THAT SHE WAS COMFORTABLE. PT. INFORMED THAT WE COULD NOT REMAIN IN THE ROOM AT ALL TIMES TO REPOSITION HER. PT. STATES SHE WILL TRY TO REMAIN IN HER CURRENT POSITION FOR "A LITTLE WHILE LONGER". AGAIN, PT. WAS REMINDED SHE WAS REPOSITIONED JUST 3 MINUTES AGO AND STATED TO BE IN A SATISFACTORY POSITION AT THAT TIME, 3 MINUTES AGO.
--- NOTE | 2018-03-02 21:25 | NUR ---
JOSÉ MIGUEL DRIP INCREASED BACK TO 2.5 MCG/KG/MIN. WILL CONTINUE TO MONITOR.
--- NOTE | 2018-03-02 22:55 | NUR ---
IN TO OFFER PT. TO TURN AT THIS TIME. PT. PLACED ON BEDPAN AT THIS TIME. TEMP REMAINS LOW AT 95. REMAINS ON NEOSYNEPHRINE DRIP AT 2.5. TRIAL DROP OF JOSÉ MIGUEL DRIP TO 2 MCG/KG/MIN AT THIS TIME. WILL CLOSELY MONITOR.
--- NOTE | 2018-03-02 23:15 | NUR ---
MEDICATED WITH ATIVAN PER PT. NEED. PLACED SUPINE PER HER REQUEST. NO BM AT THIS TIME.
--- NOTE | 2018-03-02 23:20 | NUR ---
PT. AGAIN REQUESTING BED HOBSON. AGAIN PLACED ON BED PAIN. STATES SHE NEEDS TO TURN ON HER SIDE WHEN SHES DONE. PT. INFORMED SHE WAS JUST TURNED FROM HER SIDE 20 MINUTES AGO.
--- NOTE | 2018-03-02 23:31 | NUR ---
IV ZOSYN INFUSING AT THIS TIME. ATIVAN HAS NOT BEEN EFFECTIVE OF YET.
--- NOTE | 2018-03-02 23:40 | NUR ---
TAKEN OFF BEDPAN AGAIN, NO BM. AGAIN, REPOSITIONED SUPINE. PILLOW PLACED UNDER KNEES, THEN MOVED 2 INCHES DOWN PER PATIENT REQUEST. PT. ENCOURAGED TO TRY TO GET SOME REST. ATIVAN REMAINS HIGHLY INEFFECTIVE. ZOSYN INFUSING WITHOUT SX OF INFILTRATION OR EXTRAVASATION.
[2018-03-03] VITALS (30 sets, daily range): BP systolic 82–166; BP diastolic 39–82
--- NOTE | 2018-03-03 00:20 | NUR ---
PT. AGAIN ON THE CALL LIGHT, REMAINS RESTLESS AND UNSETTLED. STATES HER NOSE IS DRY AND HER EYES ARE DRY. STATES SHE "NEEDS HER EYE DROPS" WHEN ASKED WHAT SHE USES SHE STATES VISINE. STATES SHE ALSO NEEDS SALINE NASAL SPRAY. INFORMED THAT SHE HAS NEITHER OF THOSE ORDERED AT THIS TIME. WILL SPEAK WITH MD ABOUT THIS AT LATER TIME. NO DISTRESS. ENCOURAGED TO SLEEP.
--- NOTE | 2018-03-03 01:15 | NUR ---
PT. REPOSITIONED TO LT. SIDE PER HER REQUEST. WHEN ASKED, PT. STATES SHE FEELS LIKE HER POSITION IS "PRETTY GOOD". 2 MINUTES LATER, PT. STATES "I CANT TAKE THIS POSITION". THIS RN OFFERED TO ASSIST PT. TO A MORE COMFORTABLE POSITION, PT. STATES "MAYBE YOU CAN HELP ME IN LIKE 30 MINUTES TO AN HOUR". PT. MEDICATED PER ORDERS FOR C/O 5/10 PAIN AT THIS TIME. JOSÉ MIGUEL DRIP DECREASED TO 1.5 MCG/KG/MIN.
--- NOTE | 2018-03-03 02:25 | NUR ---
PT. LOOM TUNER LIGHT REQUESTING TO CHANGE POSITION. PT. REMAINS RESTLESS AND DEMANDING. AGAIN REPOSITIONED FOR COMFORT AND MINUTES LATER HER POSITION AGAIN NEEDED TO BE CHANGED. ASKING TO SIT UP AND GET OUT OF BED. PT. INFORMED THAT SHE IS UNABLE TO EVEN MOVE HER LEGS AND REMAINS ON A IV MEDICATION TO KEEP HER BP UP. INFORMED SHE WAS NOT ABLE TO GET OOB AT THIS TIME.
--- NOTE | 2018-03-03 03:09 | NUR ---
PT. AGAIN REPOSITIONED PER HER REQUEST. REMAINS IN NO DISTRESS. JOSÉ MIGUEL DRIP DECREASED TO 0.5 MCG/KG/MIN. WILL CONTINUE TO ASSESS.
--- NOTE | 2018-03-03 04:22 | NUR ---
IV FLUIDS AND JOSÉ MIGUEL DRIP CONTINUE TO INFUSE. DRIP INCREASED BACK TO 1 MCG/KG/MIN AT THIS TIME. REPOSITIONED TO LT. SIDE FOR COMFORT. PROVIDED WITH WARM WASH CLOTH PER HER REQUEST. ALSO PROVIDED WITH ICE CHIPS. WILL CONTINUE TO MONITOR.
[2018-03-03 05:09] LABS: MEAN CELL VOLUME 87.4 fL CALC (80.0-100.0); MEAN CORPUSCULAR HGB 28.1 pG CALC (26.0-32.0); MEAN CORPUSCULAR HGB CONC 32.2 g/L CALC (32.0-36.0); RED BLOOD COUNT 3.98 mill/uL (4.20-5.60)
[2018-03-03 05:25] LABS: CREATININE 1.6 mg/dL (0.5-1.0); MAGNESIUM 1.6 mg/dL (1.6-2.3); POTASSIUM 4.3 mmol/l (3.5-5.1)
[2018-03-03 05:27] LABS: HEMATOCRIT 34.8 % (37.0-47.0); HEMOGLOBIN 11.2 g/dl (12.0-16.0)
--- NOTE | 2018-03-03 05:46 | NUR ---
PT. RESTING ON LT. SIDE IN NO DISTRESS. REPS REMAIN EVEN AND UNLABORED. MARIE HUGGER REMAINS IN PLACE AT 38 DEGREES. WILL CONTINUE TO CLOSELY MONITOR.
--- NOTE | 2018-03-03 06:20 | NUR ---
PT. REPOSITIONED SUPINE AT THIS TIME. MARIE HUGGER REMAINS APPLIED AT THIS TIME. CALL LIGHT REMAINS WITHIN REACH. JOSÉ MIGUEL DRIP CONTINUES AT 1 MCG/KG/MIN, IV FLUIDS INFUSING AT 75 CC/HR. NO DISTRESS. PROVIDED WITH LIP BALM PER HER REQUEST.
--- NOTE | 2018-03-03 07:20 | NUR ---
PT ALERT AND ORIENTED RESTING IN BED, LUNGS COARSE WTIH NO SOB OR DISTRESS AM ASSESSMENT COMPLETED, JOSÉ MIGUEL CONTINUES PER PROTOCOL INTO RIJ IV ACCESS WTIH GOOD ASPIRATE NOTED, WILL WEAN TOLERATED BY PATIENT, PT ENCOURAGED TO REPOSITION FREQUENTLY, AFEBRIE, BEAR HUGGER REMAINS IN USE, EDEMA NOTED TO ALL EXTERMETIES WITH SOME WEEPING NOTED OF SEROUS FLUID FROM UE, > FROM RUE THAN LEFT, LINEN CHANGES COMPLETED NEEDED, SAFETY MEASURES REINFROCED, CALL BACK WITHIN REACH, WILL CONTINUE TO MONITOR.
--- NOTE | 2018-03-03 08:40 | NUR ---
IN TO SEE PATIENT, PLAN OF CARE DISCUSSED INCLUDING WEANING OF JOSÉ MIGUEL, CALL BACK WITHIN REACH
--- NOTE | 2018-03-03 09:34 | NUR ---
PT TALKING ON PHONE INTERMITTENTLY, CALL BACK WITHIN REACH, ATTEMPTING TO WEAN JOSÉ MIGUEL, WILL MONITOR CLOSELY.
--- NOTE | 2018-03-03 10:06 | NUR ---
PT REPOSITIONED FOR COMFORT ON R IGHT SIDE, BEAR HUGGER OFF AT THIS TIME, CALL BACK WITHIN REACH
--- NOTE | 2018-03-03 11:11 | NUR ---
S: NICOLE ARTIS is a 82 F who presents with Swelling left hand and weakness. . 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 All medications in patient's chart were reviewed. O: VS: BP <10.3/68>, P<60>, RR<20>,T<97.8> W <56 kg>, HT<60IN>, Scr=<1.6>,CrCl= <19.5ml/min> A: Blood culture <is pending P: Patient is on <VANCOMYCIN AND ZOSYN >. Vancomycin ordered for pharmacy to dose. Start Vancomycin 1000MG IV Q<48>H. Vancomycin trough is drawn before the 4th dose on <03/06/18 @1230>. Vancomycin goal trough is between <15-20 mcg/ml> . cover health care acquired pneumonia and aspiration pneumonia Pharmacy will follow and or advise on antibiotics use as needed. DIYA STEVENSON PHARMD
--- NOTE | 2018-03-03 11:15 | NUR ---
COMPLETE BATH PROVIDED BY VENDING MACHINE OPERATOR AND OOB TO BSC THEN RECLINER WITH ONE MAX ASSIST, PT HAS DIFFICULTY BEARING WEIGHT, TOLERATED ACTIVITY WITHOUT INCIDENT, SITTING UP IN RECLINER AT BEDSIDE, FAMILY MEMBER IN TO VISIT WITH FRIEND FROM [place], OFFERS NO NEW COMPLAINTS, CALL BACK WITHIN REACH.
--- NOTE | 2018-03-03 12:15 | NUR ---
PT TOLERATING NEOSYNEPHRINE GTT BEING STOPPED, BP REMAINS STABLE, REMAINS SITTING UP IN RECLINER, REQUESTED ALTERNATIVE MEAL FOR LUNCH, DIETARYT NOTIFIED, CALL BACK WITHIN REACH, WILL CONTINUE TO MONITOR
--- NOTE | 2018-03-03 13:36 | NUR ---
BACK TO BED WITH MAX ASSIST, INCONTINENT OF MODERATE AMOUNT OF SOFT STOOL, CORBIN CARE PROVIDED, PT REPOSITIONED FOR COMFORT, CONTINUES TO MAINTAIN BP WITH NEOSYNEPHRINE GTT OFF. WILL CONTINUE TO MONITOR.
--- NOTE | 2018-03-03 14:45 | NUR ---
Pt resting in bed, offers no new complaints, call brown within reach, Will continue to monitor.
--- NOTE | 2018-03-03 15:52 | NUR ---
Pt s poke with family on telphone and visitor at bedside, call brown within reach, linens hcanged for continued weeping from edema mainly right arm. Call brown within reach, will continue to monitor.
--- NOTE | 2018-03-03 16:38 | NUR ---
Physical therapy at bedside for eval/tx pt required reinforcement to participate stating she had someone at home that does this with her and that she didn't need it here, reminded pt of her weakness and max assit with oob activity today as well as requiring max assist with bed mobility as well. Pt agreeable to eval and treat.
--- NOTE | 2018-03-03 18:17 | NUR ---
PT REMAINS SITTING UP IN RECLINER, STOOD WITH MAX ASSIST AND TRANSFERRED TO BSC WITH NO RESULTS, BACK TO RECLINER WITH SAME, CALL BACK WITHIN REACH
--- NOTE | 2018-03-03 19:10 | NUR ---
awake. sitting in chair. no acute distress. o2 cont per nc. has general edema. arms weeping. laboratory monitor shows paced rhythm. #20 rej d5ns infusing @ 75cchr. no po intake @ present. perez cath in place. urine clear yellow. fall precautions cont.
--- NOTE | 2018-03-03 21:00 | NUR ---
assisted to bed x2. pt need much assististance. spoke @ length about rehab. pt agrees.
--- NOTE | 2018-03-03 22:00 | NUR ---
eyes closed. no distress. drum carrier shows paced rhythm.
[2018-03-04] VITALS (13 sets, daily range): BP systolic 93–144; BP diastolic 41–74
--- NOTE | 2018-03-04 00:01 | NUR ---
eyes closed. no distress. stogie packer shows paced rhythm.
--- NOTE | 2018-03-04 02:00 | NUR ---
resting quietly. resps even & unlabored. no apparent distress.
--- NOTE | 2018-03-04 04:50 | NUR ---
blood drawn & sent to lab.
[2018-03-04 05:04] LABS: HEMATOCRIT 36.1 % (37.0-47.0); HEMOGLOBIN 11.6 g/dl (12.0-16.0); MEAN CORPUSCULAR HGB 28.3 pG CALC (26.0-32.0); MEAN CORPUSCULAR HGB CONC 32.1 g/L CALC (32.0-36.0); RED BLOOD COUNT 4.1 mill/uL (4.20-5.60); RED CELL DISTRI WIDTH 18.2 % (11.5-15.5)
[2018-03-04 05:13] LABS: CREATININE 1.5 mg/dL (0.5-1.0)
[2018-03-04 05:15] LABS: POTASSIUM 3.3 mmol/l (3.5-5.1)
--- NOTE | 2018-03-04 06:00 | NUR ---
eyes closed. no distress. o2 cont per nc.
--- NOTE | 2018-03-04 07:15 | NUR ---
PT ALERT AND ORIENTED RESTING IN BED, LUNGS DIMINSHED WTIH NO SOB OR DISTRESS O2 AT2L VIA NC, AM ASSESSMENT COMPLETED, IVF INTO RIJ IV ACCESS WTIH GOOD ASPIRATE NOTED, PT ASSISTED WITH REPOSITION FOR INTENT OF AM MEAL INTAKE, PT ENCOURAGED TO REPOSITION FREQUENTLY, AFEBRILE, BEAR HUGGER OFF AT THIS TIME, EDEMA NOTED TO ALL EXTERMETIES WITH SOME WEEPING NOTED OF SEROUS FLUID FROM UE, > FROM RUE THAN LEFT, SMALL SKIN TEAR NOTED TO LEFT TOP OF HAND WITH SEROUS DRAINAGE, CONTINUES TO HAVE ANASARCA BUT IMPROVEMENT NOTED, LINEN CHANGES COMPLETED NEEDED, SAFETY MEASURES REINFORCED, CALL BACK WITHIN REACH, WILL CONTINUE TO MONITOR.
--- NOTE | 2018-03-04 07:35 | NUR ---
SET UP ASSIST PROVIDED FRO AM MEAL, CALL BACK WITHIN REACH
--- NOTE | 2018-03-04 08:42 | NUR ---
pt resting inbed, bed, tolerated am meal w/o incident, magneisum infusing as ordered w/o incident, call brown within reach.
--- NOTE | 2018-03-04 09:28 | NUR ---
PT @PTS BEDSIDE.
--- NOTE | 2018-03-04 09:50 | NUR ---
PT WAS SEEN SUPINE ON BED, NO S/SX OF DISTRESS NOTED OR REPORTED. DENIES DIZZINESS OR SOB. SHE PARTICIPATED WELL WITH BED MOB. ACTVITIES REQUIRING MIN A AND VERBAL CUEING ON ROLLING, SCOOTING AND SLIDING. PT WAS STILL WEAK AND UNABLE TO ACTIVELY AND INDEPENDENTLY LIFT HER R LEG. DID SIT TO STAND WITH MIN A AND RW. PT THEN TOLERATED STANDING WITH CGA AND RW FOR ~3 MINS. AMBULATED WITH CORRECT GAIT FROM BED TO RECLINER ~7 STEPS WITH TURNING. PT WAS ASSISTED/POSITIONED TO THE RECLINER WITH ELEVATED LEG REST. SHE THEN ASKED ABOUT WHEN SHE WILL BE DC'D TO REHAB. ADVISED TO WAIT FOR MD. LEFT PT COMFORTABLY SITTING IN THE RECLINER WITH CALL BACK BESIDE HER. NO ADVERSE RXNS NOTED OR REPORTED AT THE END OF FUNCTIONAL ACTIVITY.
--- NOTE | 2018-03-04 09:53 | NUR ---
pt remains sitting up in recliner after working with physical therpay, pt more agreeable to go to rehab facility after d/c related to currentl weakness and inability ot care for self independently.
--- NOTE | 2018-03-04 09:58 | NUR ---
and Kaur COSME at bedside plan of care discussed, including discharge to rehab. Call brown within reach
--- NOTE | 2018-03-04 11:15 | NUR ---
lasix IV to be given as ordered, will monitor output, call stephanie arnold, continues sitting up in recliner at bedside, will continue to monitor.
--- NOTE | 2018-03-04 11:44 | NUR ---
pt assisted to bedside commode with 2 mod assist, call brown within reach, instructed to call fro assistance when ready.
--- NOTE | 2018-03-04 11:53 | NUR ---
assisted with lis care then back to recliner x 1 max assist, and set up assist provided fro afternoon meal, call brown within reach
--- NOTE | 2018-03-04 12:27 | NUR ---
pt medicated fro complaints of pain in back and legs (generalized aching) as requested/ordered, comfort measures provided, minimal intake of afternoon meal, moderate output since lasix administration, will continue to monitor
--- NOTE | 2018-03-04 13:15 | NUR ---
MEDICATED FOR COMPLAINTS OF NAUSEA, REMAINS SITTING UP IN RELCINER, CALL BACK WITHIN REACH.
--- NOTE | 2018-03-04 13:58 | NUR ---
COMPLETE BED BATH PERFORMED, ASSISTED BACK TO BED AND LINENS CHANGED, PT TOLERATED WELL, MEDICATED FRO COMPLAINTS OF ANXIETY REQUESTED BY PATIENT, CALL BACK WITHIN REACH, POSITIONED ON R SIDE FOR COMFORT PER PT REQUEST, WILL CONTINUE TO MONITOR.
--- NOTE | 2018-03-04 15:02 | NUR ---
VISITORS AT BEDSIDE FOR SHORT PERIOD OF TIME, CASE MGMT ALSO IN TO SEE PATIENT, PT VERBALIZES AGREEANCE TO GO TO REHAB AFTER DISCHARGE, CASE MGMT TO WORK ON PLACEMENT.
--- NOTE | 2018-03-04 16:35 | NUR ---
PT RESTING IN BED WITH EYES CLOSED, NO S/S OF DISTRESS, IVF AT KVO, CASE MGMT C.JENNIFER RN STATES PT ACCEPTED AT [facility] TOMORROW IF READY FOR D/C, WILL NOTIFYT , CALL BACK WITHIN REACH, VERA CATHETER REMAINS INTACT, WILL CONTINUE TO MONITOR.
--- NOTE | 2018-03-04 17:50 | NUR ---
PT DROWSY, DOZING, DECLINED MEAL AT THIS TIME BUT REQUESTED KEEPING AT BEDSIDE, CALL BACK WITHIN REACH
[2018-03-04] MEDS ORDERED: LORAZEPAM0.5 MG PO (17:58)
[2018-03-04] MEDS ORDERED: HYDROCO/APAP1 TA9 PO (17:58)
[2018-03-04] MEDS ORDERED: FLORASTOR250 M1 PO (18:01)
[2018-03-04] MEDS ORDERED: AUGMENTIN500TAB PO (18:01)
[2018-03-04] MEDS ORDERED: DOXYCYCL HYC100 MG PO (18:01)
--- NOTE | 2018-03-04 19:00 | NUR ---
drowsy when awakened. denies distress. o2 cont per nc. surveillance system monitor shows paced rhythm. #20 rej d5ns infusing @ 10cchr. perez cath in place. urine clear yellow. anasarca conts. fall precautions cont.
--- NOTE | 2018-03-04 21:00 | NUR ---
awakened easily. meds given. arms & legs weeping. sheet changed.
[2018-03-05] VITALS (7 sets, daily range): BP systolic 104–139; BP diastolic 62–78
--- NOTE | 2018-03-05 00:01 | NUR ---
eyes closed. no distress. compliance monitor shows paced rhythm.
--- NOTE | 2018-03-05 02:00 | NUR ---
resting quietly. resps even & unlabored. no resp distress.
--- NOTE | 2018-03-05 04:40 | NUR ---
blood drawn & sent to lab. bed weight obtained. pads, gown & sheet changed. turned & repositioned.
[2018-03-05 05:03] LABS: HEMATOCRIT 36.8 % (37.0-47.0); HEMOGLOBIN 11.9 g/dl (12.0-16.0); MEAN CELL VOLUME 87.8 fL CALC (80.0-100.0); MEAN CORPUSCULAR HGB 28.4 pG CALC (26.0-32.0); MEAN CORPUSCULAR HGB CONC 32.3 g/L CALC (32.0-36.0); RED BLOOD COUNT 4.19 mill/uL (4.20-5.60); RED CELL DISTRI WIDTH 18.4 % (11.5-15.5)
[2018-03-05 05:17] LABS: CREATININE 1.4 mg/dL (0.5-1.0); POTASSIUM 3.7 mmol/l (3.5-5.1)
--- NOTE | 2018-03-05 06:00 | NUR ---
no acute distress this shift. ekg monitor tech shows paced rhythm.
--- NOTE | 2018-03-05 07:10 | NUR ---
PT ALERT AND ORIENTED RESTING IN BED ON LEFT SIDE, LUNGS DIMINSHED WTIH NO SOB OR DISTRESS O2 AT 2L VIA NC PT REQUESTING TO TAKE O2 OFF, EDUCATED REGARDING WEANING AND WILL ATTMEPT REMOVAL, MONITOR O2 SATS AND MAY REQUIRE RE-APPLICATION IF POOR TOLERANCE, SOB/DISTRESS OR SATS DROP, PT VERBALIZES UNDERSTANDING AND O2 OFF AT THIS TIME, AM ASSESSMENT COMPLETED, IVF INTO RIJ IV ACCESS WITH GOOD ASPIRATE NOTED, PT ENCOURAGED TO REPOSITION FREQUENTLY, AFEBRILE, BEAR HUGGER REMAINS OFF, CONTINUES TO HAVE EDEMA TO ALL EXTERMETIES WITH SOME WEEPING NOTED OF SEROUS FLUID FROM ALL EXTREMETIES WELL, SMALL SKIN TEAR NOTED TO LEFT TOP OF HAND WITH SEROUS DRAINAGE, CONTINUES TO HAVE ANASARCA BUT IMPROVEMENT NOTED, SAFETY MEASURES REINFORCED, CALL BACK WITHIN REACH, WILL CONTINUE TO MONITOR.
--- NOTE | 2018-03-05 07:30 | NUR ---
O2 SATS SLOWLY DIPPED TO 87-88% PT AWARE NO SOB OR DISTRESS NOTED, BUT O2 RE-APPLIED AT 2L VIA NC, CALL BACK WITHIN REACH
--- NOTE | 2018-03-05 07:45 | NUR ---
REPOSITION IN HIGH FOWLERS FOR AM MEAL, SET UP ASSIST PROVIDED WITH AM TRAY, CALL BACK WITHIN REACH, WILL CONTINUE TO MONITOR.
--- NOTE | 2018-03-05 08:45 | NUR ---
P.T. AT BEDSIDE WITH PATIENT, RECLINER AT BEDSIDE FOR PT ONCE THERAPY COMPLETE. CALL BACK WITHIN REACH
--- NOTE | 2018-03-05 08:54 | NUR ---
PT WAS ABLE TO GET OOB WITH MIN A ON LIFTING HER LEGS OFF THE BED. AGREED TO PARTICIPATE IN AMB, STATES THAT SHE FEELS A LIITLE BETTER TODAY. SHE AMB IN THE HALLWAY ~10 FT. WITH RW, MIN A AND VERBAL CUES. TOOK 3 REST PERIODS THEN BACK TO HER ROOM TO SIT IN THE RECLINER. PROVIDED CGA AND VERBAL CUES ALTHROUGHOUT THE ACTIVITY. NO COMPLAINTS OF SOB OR DIZZINESS. SPO2 REMAINED AT 96% ON 3L OF O2 VIA NASAL CANNULA.
--- NOTE | 2018-03-05 09:26 | NUR ---
,EDCIATED FOR COMPLAINTS OF PAIN IN LEFT HAND ORDERED, CALL WONG KRUEGER, AWARE OF PLANNED DISCHARGE TO REHAB TODAY.
--- NOTE | 2018-03-05 09:42 | NUR ---
VERA CATHTER REMOVED INTACT W/O INCIDENT, PT TOLERATED WELL, MAX ASSIST TO BSC, CALL BACK WITHIN REACH, PT COMPLIANT WITH CALLING FOR ASSISTANCE.
--- NOTE | 2018-03-05 10:44 | NUR ---
PT BACK TO BED TO "REST"PER HER REQUEST, PT AWARE OF PLANNED TRANSFER TO REHAB TODAY, VOIDED LESS THAN 25 ML TONI URINE SINCE VERA REMOVAL, CALL BACK WITHIN REACH.
--- NOTE | 2018-03-05 11:40 | NUR ---
IV ABT INFUSING ORDERED WTIH GOOD ASPIRATE NOTED. [facility] TO PICK PT UP AT 1330, PT AWARE
--- NOTE | 2018-03-05 12:37 | NUR ---
PT OOB TO BSC, CONTINENT OF 100 ML TONI URINE, (POST VERA) TOLERATED WELL, SELF CORBIN CARE DONE AND INTO RECLINER FOR AFTERNOON MEAL (DECLINED EARLIER) PT AWARE OF SCHEDULED 1330 TRANSFER TIME TO REHAB, CALL BACK WITHIN REACH, SET UP ASSIST PROVIDED FOR MEAL, WILL CONTINUE TO MONITOR.
--- NOTE | 2018-03-05 13:32 | NUR ---
PT COMPLAINS OF MILD NAUSEA SMALLA MOUTN EMESIS APPEARS TO BE TENCIOUS ORAL SECRETIONS, DECLINES NAUSEA MEDICATION AT THIS TIME , WILL CONTINUE TO MONITOR
--- NOTE | 2018-03-05 13:55 | NUR ---
Discharge education provided. Patient verbalizes understanding of same. Discharged in stable condition via Wheelchair to [facility] with staff. All belongings sent with pt.
== END 2018-03-05 13:55 | DRG 871 ==
LOC: ED 21:10 → ED-I 23:40 → ED 03-02 00:13 → ICU 03-02 00:14
PROVIDERS: Emergency Medicine; Nurse Practitioner Family; ADMIT Internal Medicine; ATTEND Internal Medicine
PROC: 0T9B70Z Drainage of Bladder with Drainage Device, Via Natural or Artificial Opening (ICD-10-PCS; principal; 2018-03-02)
DX: A41.9 Sepsis, unspecified organism (principal); R65.21 Severe sepsis with septic shock; J69.0 Pneumonitis due to inhalation of food and vomit; J96.21 Acute and chronic respiratory failure with hypoxia; E43 Unspecified severe protein-calorie malnutrition; N17.9 Acute kidney failure, unspecified; L03.114 Cellulitis of left upper limb; E87.2 Acidosis; C91.91 Lymphoid leukemia, unspecified, in remission; I44.2 Atrioventricular block, complete; I13.0 Hypertensive heart and chronic kidney disease with heart failure and stage 1 through stage 4 chronic kidney disease, or unspecified chronic kidney disease; J44.1 Chronic obstructive pulmonary disease with (acute) exacerbation; E87.6 Hypokalemia; E16.2 Hypoglycemia, unspecified; N18.3 Chronic kidney disease, stage 3 (moderate); I50.9 Heart failure, unspecified; R60.1 Generalized edema; E86.0 Dehydration; E87.5 Hyperkalemia; I48.91 Unspecified atrial fibrillation; K44.9 Diaphragmatic hernia without obstruction or gangrene; E78.5 Hyperlipidemia, unspecified; F41.9 Anxiety disorder, unspecified; F32.9 Major depressive disorder, single episode, unspecified; K21.9 Gastro-esophageal reflux disease without esophagitis; Z66 Do not resuscitate; Z90.49 Acquired absence of other specified parts of digestive tract; Z92.3 Personal history of irradiation; Z92.21 Personal history of antineoplastic chemotherapy; Z95.0 Presence of cardiac pacemaker; Z79.01 Long term (current) use of anticoagulants; Z68.24 Body mass index [BMI] 24.0-24.9, adult; Z99.81 Dependence on supplemental oxygen

== ENCOUNTER 2018-03-08 13:37 | Emergency (ER) | payer MEDICARE ==
[~2018-03-08 13:37] MED LIST changes: +AUGMENTIN500TAB PO; +DOXYCYCL HYC100 MG PO
[2018-03-08 13:56] VITALS: BP 0/0
--- NOTE | 2018-03-08 13:56 | NUR ---
CALLED TO ER FOR CODE BLUE. PT INTUBATED 7.0 TUBE 24 @ THE LIP BY EMS PRIOR TO ARRIVAL. CODE CALLED BY DR. LLOYD
== END 2018-03-08 13:50 | disposition expired ==
LOC: ED 13:37
PROC: 5A12012 Performance of Cardiac Output, Single, Manual (ICD-10-PCS; principal; 2018-03-08)
DX: I49.01 Ventricular fibrillation (principal); I46.2 Cardiac arrest due to underlying cardiac condition; I13.0 Hypertensive heart and chronic kidney disease with heart failure and stage 1 through stage 4 chronic kidney disease, or unspecified chronic kidney disease; N18.3 Chronic kidney disease, stage 3 (moderate); I50.9 Heart failure, unspecified; C95.90 Leukemia, unspecified not having achieved remission; E78.00 Pure hypercholesterolemia, unspecified; F41.9 Anxiety disorder, unspecified; E78.5 Hyperlipidemia, unspecified; F32.9 Major depressive disorder, single episode, unspecified; I48.91 Unspecified atrial fibrillation; Z95.0 Presence of cardiac pacemaker; Z92.3 Personal history of irradiation; Z92.21 Personal history of antineoplastic chemotherapy; Z66 Do not resuscitate
CPT/HCPCS: J0282